=== PATIENT | female | born 1955 | race Caucasian/White ===

== ENCOUNTER 2018-03-17 00:26 | Outpatient (CLI) | payer OTHER, SELFPAY ==
--- NOTE | 2018-03-17 13:15 | DI.RAD_ITS ---
SYMPTOMS/DIAGNOSIS: ASYMPTOMATIC MENOPAUSAL STATE, Z78.0 DEXA SCAN WITH ROSE: The ROSE image shows no evidence of compression fractures. The bone mineral density measurements of the lumbar spine correspond to a total T score of -2.0, in the osteopenic range. The bone mineral density measurements of the left hip correspond to a total T score of -0.8 and a femoral neck T score of -1.2, in the osteopenic range. The left forearm bone mineral density measurements correspond to a total T score of -0.5 and a T score of the distal third of -0.6 , in the normal range. IMPRESSION: Osteopenia of the lumbar spine and left hip. Normal bone mineral density of the left forearm.
== END 2018-03-17 00:46 ==
PROVIDERS: PCP Nurse Practitioner; Visit Provider Nurse Practitioner
DX: M85.88 Other specified disorders of bone density and structure, other site (principal); Z78.0 Asymptomatic menopausal state
CPT/HCPCS: 77080

== ENCOUNTER 2018-09-08 09:35 | Outpatient (CLI) | payer OTHER, SELFPAY ==
[2018-09-08 11:03] LABS: ALT 20 U/L (12-78); AST 16 U/L (15-37); Albumin 3.6 g/dL (3.4-5.0); Alkaline Phosphatase 96 U/L (46-116); Anion Gap 7.5 mmol/L (3-11); BUN 12 mg/dL (7-18); Bilirubin, Total 0.4 mg/dL (0.2-1.0); CO2 29.5 mmol/L (21.0-32.0); CREATININE 0.87 mg/dL (0.55-1.02); Chloride 105 mmol/L (98-107); Cholesterol 175 mg/dL (50-200); Glucose 90 mg/dL (70-100); HDL Cholesterol 69 mg/dL (40-60); LDL CHOLESTEROL 90 mg/dL (<100); Potassium 3.9 mmol/L (3.5-5.1); Sodium 142 mmol/L (136-145); Total Protein 6.9 g/dL (6.4-8.2); Triglyceride 60 mg/dL (30-150)
== END 2018-09-08 09:55 ==
PROVIDERS: PCP Nurse Practitioner; Visit Provider Nurse Practitioner Family
DX: F33.3 Major depressive disorder, recurrent, severe with psychotic symptoms (principal); Z79.899 Other long term (current) drug therapy
CPT/HCPCS: 36415; 80053; 80061; 83721

== ENCOUNTER 2018-09-28 13:42 | Outpatient (CLI) | payer OTHER, SELFPAY ==
--- NOTE | 2018-09-28 13:30 | DI.RAD_ITS ---
SYMPTOMS/DIAGNOSIS: WATERY DIARRHEA, CHRONIC, K52.9; GASTROENTERITIS, COLITIS FLAT AND UPRIGHT VIEWS OF THE ABDOMEN: The visualized portions of the lung bases are clear. No free air is seen. There is no gastric, small bowel or colonic distention. There is a moderate increased quantity of stool. There is no abnormal colonic distention. There is a calcification projecting in the left pelvis, which could represent a ureteropelvic junction calculus versus a phlebolith. It measures 4 mm in diameter. IMPRESSION: Question of a calculus at the left ureterovesical junction versus phlebolith.
[2018-09-28 14:00] LABS: HCT 43.7 % (36.0-46.0); HGB 14.6 g/dL (12.0-15.5); Mean Corp. HGB Concentration 33.4 g/dL (32.0-36.0); Mean Corpuscular Volume 89.7 fL (80-95); Mean Platelet Volume 9.2 fL (8.0-11.0); Platelet Count 245 x1000/uL (130-400); RBC 4.87 m/cumm (4.00-5.20); RBC Distribution Width 13.8 % (11.7-14.6); White Blood Cell Count 5.24 k/cumm (4.4-10.8)
[2018-09-28 15:01] LABS: C-Reactive Protein 1.03 mg/dL (0.0-0.3); TSH (W/Ref FT4) 1.66 uIU/mL (0.358-3.74)
[2018-09-28 15:13] LABS: ESR 6 MM/HR (0-30)
[2018-09-30 13:39] LABS: IgA 190 mg/dL (85-499); Interpretation SEE COMMENTS; Tissue Transglutaminase IgA <1.2 U/mL (<4.0)
== END 2018-09-28 14:02 ==
PROVIDERS: PCP Nurse Practitioner; Visit Provider Nurse Practitioner
DX: K52.9 Noninfective gastroenteritis and colitis, unspecified (principal); R19.7 Diarrhea, unspecified; I10 Essential (primary) hypertension
CPT/HCPCS: 36415; 82784; 83516; 85027; 85652; 74019; 84443; 86140

== ENCOUNTER 2018-11-02 18:29 | Emergency (ER) | payer OTHER, SELFPAY ==
[2018-11-02] MEDS: EPINEPHrine 1 MG/ML AMP pres-free (18:35)
[2018-11-02 18:36] VITALS: BP 129/74; PULSE 66; RESP 16
--- NOTE | 2018-11-02 18:36 | DI.CT_ITS ---
SYMPTOM/DIAGNOSIS: LT SIDED SWELLING OF NECK, ? ABSCESS NECK CT: Multiple contiguous axial images of the neck were obtained following the uneventful administration of intravenous contrast material. The visualized intracranial structures are grossly unremarkable as are the visualized orbits and retro-orbital soft tissues. The visualized paranasal sinuses are clear. The mastoid air cells are well pneumatized. The parotid glands are unremarkable. There is heterogeneity and enlargement of the submandibular glands bilaterally, left greater than right. There also appear to be infiltrative changes seen in the muscles at the base of the tongue extending from the hyoid to the mandible. There does appear to be some enlargement of the tonsils with narrowing of the airway at the level of the uvula. There are enlarged lymph nodes in the neck bilaterally, particularly in the submandibular region. These are likely reactive. Stranding in the soft tissues in the submandibular region are present, particularly on the left. No focal fluid collection is seen to suggest an abscess. The vascular structures appear unremarkable. The cervical spine appears intact with mild degenerative change. IMPRESSION: Inflammatory changes involving the neck, particularly the submandibular region. No CT evidence of an abscess. Cervical adenopathy, likely reactive. Mild enlargement of the tonsillar tissue without focal abscess. This does result in mild narrowing of the airway at the level of the uvula.
--- NOTE | 2018-11-02 18:38 | W.ED.GENAD ---
Discharge Plan Disposition Patient Disposition: HOME Condition: Stable Discharge Details Chief Complaint: FacialProb Clinical Impression: Dental infection, Neck swelling Primary Care Provider: Carolina Mohr ED Provider: Ervin Vargas Home Meds and New Rx's Prescriptions: New clindamycin HCl 150 mg capsule 450 mg PO TID 10 Days Qty: 90 RF: 0 prednisone 20 mg tablet 60 mg PO DAILY 4 Days Qty: 12 RF: 0 No Action Questran Light 4 gram powder 4 g PO DAILY Qty: 60 RF: 12 diphenoxylate-atropine [Lomotil] 2.5-0.025 mg tablet 1 tab PO Q6H PRN (Reason: diarrhea) Qty: 60 RF: 0 CALCIUM 600+MINERALS 1 TAB tablet 1 tab PO BID RF: 0 fexofenadine [Lynda] 180 MG tablet 180 mg PO DAILY PRNRF: 0 sertraline 100 MG tablet 200 mg PO DAILY RF: 0 epinephrine [EpiPen 2-Marcelo] 0.3 MG/0.3 ML auto-injector 0.3 mg IM ONCE Qty: 2 RF: 1 multivitamin [Multi-Day] 1 EACH tablet 1 ea PO DAILY RF: 0 cyanocobalamin (vitamin B-12) [Vitamin B-12] 1,000 MCG tablet 1,000 mcg PO DAILY RF: 0 risperidone [Risperdal] 2 MG tablet 2 mg PO DAILY RF: 0 vitamin B complex [B Complete] 1 EACH tablet 1 ea PO DAILY RF: 0 cholecalciferol (vitamin D3) 1,000 UNIT capsule 2,000 unit PO DAILY RF: 0 diphenhydramine HCl [Benadryl] 25 mg Capsule 25 mg PO PRN PRNRF: 0 Discharge Instructions Additional Instructions: Your cat scan showed you have an infection near your teeth. Follow up with your dentist within 1-2 weeks if you have difficulty swallowing liquids or difficulty breathing return to the emergency department Medical Decision Making 63 yo female come s in after she states she started to have swelling of her left face about 3 hour ago, denies respiratory or gi symptoms. She states she thinks she had hives earlier but has none now. she took a benadryl and feels a little better now. She is hd stable on exam with noticeable swelling over the left mandible. Tongue doesn't appear swollen, no rashes, clear lungs, soft abdomen. Unclear if this is actually allergic reaction, will tx as such and also eval for possible abscess with CT ct confirms pt has perimandibular/submandibular cellulitis, suspect dental infecition. Still no findings of anaphylaxis so doubt she had this. Will start her on abx and advised f/u [facility] dentist, return precautions given Differential Diagnosis abscess, parotitis, angioedema Imaging Data Radiologic Study: Attestation: I personally reviewed and interpreted this imaging study as follows: Imaging: CT Scan Radiologist's impression: IMPRESSION: Left perimandibular cellulitis and submandibular swelling without discrete evidence of abscess formation. Associated left submandibular and left cervical chain reactive adenopathy. HPI General Mode of arrival: ambulatory. Date/Time Provider Initiated Documentation: 11/02/18 18:36. Limitations to Documentation: no limitations. Information obtained by: patient. History of Present Illness 63 year old F presents to the emergency department with the chief complaint of left sided face swelling, described as moderate, and is localized to the face and left. Patient started experiencing this hour(s) (2) and it has been other (improving). No relieving factors improve symptom(s), No exacerbating factors reported . Patient did receive the following treatments prior to arrival, none Related Data Home Medications Medication Instructions Recorded Confirmed Calcium 600+Minerals 1 tab PO BID 04/16/12 11/02/18 fexofenadine [Lynda] 180 mg PO DAILY PRN tab-cap 03/17/13 11/02/18 sertraline 200 mg PO DAILY tab-cap 03/18/13 11/02/18 epinephrine [Epipen 2-Marcelo] 0.3 mg IM ONCE #2 pen 04/11/14 11/02/18 multivitamin [Multi-Day Vitamins] 1 ea PO DAILY 06/17/14 11/02/18 cyanocobalamin (vitamin B-12) 1,000 mcg PO DAILY 05/02/16 11/02/18 [Vitamin B-12] risperidone [Risperdal] 2 mg PO DAILY tab 09/12/16 11/02/18 vitamin B complex [B Complete] 1 ea PO DAILY tab 09/12/16 11/02/18 cholecalciferol (vitamin D3) 2,000 unit PO DAILY 01/28/18 11/02/18 cholestyramine-aspartame 4 gram 4 g PO DAILY #60 packet 09/23/18 11/02/18 oral powder diphenoxylate-atropine 2.5 1 tab PO Q6H PRN #60 tab 09/23/18 11/02/18 mg-0.025 mg tablet clindamycin HCl 450 mg PO TID 10 Days #90 cap 11/02/18 diphenhydramine HCl [Benadryl] 25 mg PO PRN PRN 11/02/18 11/02/18 prednisone 60 mg PO DAILY 4 Days #12 tab 11/02/18 Previous Rx's Medication Instructions Recorded cholestyramine-aspartame 4 gram 4 g PO DAILY #60 packet 09/23/18 oral powder diphenoxylate-atropine 2.5 1 tab PO Q6H PRN #60 tab 09/23/18 mg-0.025 mg tablet clindamycin HCl 450 mg PO TID 10 Days #90 cap 11/02/18 prednisone 60 mg PO DAILY 4 Days #12 tab 11/02/18 Allergies Allergy/AdvReac Type Severity Reaction Status Date / Time aspirin Allergy Intermediate Urticaria Unverified 11/02/18 18:47 Review of Systems Review of Systems All systems reviewed & are unremarkable except as noted in HPI and below Constitutional Denies chills, Denies fever(s) and Denies weakness ENT Denies change in voice Cardiovascular Denies chest pain and Denies dyspnea Respiratory Denies cough and Denies dyspnea Gastrointestinal Denies abdominal pain, Denies nausea and Denies vomiting Genitourinary Denies dysuria Musculoskeletal Denies joint swelling Neurologic Denies weakness PFSH Medical History Depression Surgical History Biopsy of breast (~2010) Fracture Repair, Right Wrist Family History Mother Essential hypertension Hyperthyroidism Mental disorder Father COPD (chronic obstructive pulmonary disease) Brother No problems noted. Brother No problems noted. Sister Essential hypertension Sister Arthritis Sister No problems noted. Sister No problems noted. Maternal Aunt Personal history of malignant neoplasm Social History Smoking/Tobacco Use Status: Never Alcohol Intake: never Drug use: Never Do you feel safe at home: Yes Do you feel safe in your relationship?: Yes Exam Const General: no acute distress Orientation: alert HENMT Head: normal to inspection Ears: external ears normal General nose exam: external nose normal Mouth: moist mucous membranes Eyes General: appearance normal, both eyes and all related structures Neck Neck: normal visual inspection Resp Effort & Inspection: normal respiratory effort and able to speak in complete sentences Cardio Rate: regular rate Skin General skin exam: no rashes or lesions noted Neuro General: alert and oriented x3 Extrem General: normal to inspection Psych Mental Status: mental status grossly normal
[2018-11-02] MEDS: methylPREDNISolone SUCC 125 MG VIAL IVP (18:43)
--- NOTE | 2018-11-02 18:43 | ED.GENADUL_ITS ---
Discharge Plan Disposition Patient Disposition: HOME Condition: Stable Discharge Details Chief Complaint: FacialProb Clinical Impression: Dental infection, Neck swelling Primary Care Provider: Carolina Mohr ED Provider: Ervin Vargas Home Meds and New Rx's Prescriptions: New clindamycin HCl 150 mg capsule 450 mg PO TID 10 Days Qty: 90 RF: 0 prednisone 20 mg tablet 60 mg PO DAILY 4 Days Qty: 12 RF: 0 No Action Questran Light 4 gram powder 4 g PO DAILY Qty: 60 RF: 12 diphenoxylate-atropine [Lomotil] 2.5-0.025 mg tablet 1 tab PO Q6H PRN (Reason: diarrhea) Qty: 60 RF: 0 CALCIUM 600+MINERALS 1 TAB tablet 1 tab PO BID RF: 0 fexofenadine [Lynda] 180 MG tablet 180 mg PO DAILY PRNRF: 0 sertraline 100 MG tablet 200 mg PO DAILY RF: 0 epinephrine [EpiPen 2-Marcelo] 0.3 MG/0.3 ML auto-injector 0.3 mg IM ONCE Qty: 2 RF: 1 multivitamin [Multi-Day] 1 EACH tablet 1 ea PO DAILY RF: 0 cyanocobalamin (vitamin B-12) [Vitamin B-12] 1,000 MCG tablet 1,000 mcg PO DAILY RF: 0 risperidone [Risperdal] 2 MG tablet 2 mg PO DAILY RF: 0 vitamin B complex [B Complete] 1 EACH tablet 1 ea PO DAILY RF: 0 cholecalciferol (vitamin D3) 1,000 UNIT capsule 2,000 unit PO DAILY RF: 0 diphenhydramine HCl [Benadryl] 25 mg Capsule 25 mg PO PRN PRNRF: 0 Discharge Instructions Additional Instructions: Your cat scan showed you have an infection near your teeth. Follow up with your dentist within 1-2 weeks if you have difficulty swallowing liquids or difficulty breathing return to the emergency department Medical Decision Making 63 yo female come s in after she states she started to have swelling of her left face about 3 hour ago, denies respiratory or gi symptoms. She states she thinks she had hives earlier but has none now. she took a benadryl and feels a little better now. She is hd stable on exam with noticeable swelling over the left mandible. Tongue doesn't appear swollen, no rashes, clear lungs, soft abdomen. Unclear if this is actually allergic reaction, will tx as such and also eval for possible abscess with CT ct confirms pt has perimandibular/submandibular cellulitis, suspect dental infecition. Still no findings of anaphylaxis so doubt she had this. Will start her on abx and advised f/u [facility] dentist, return precautions given Differential Diagnosis abscess, parotitis, angioedema Imaging Data Radiologic Study: Attestation: I personally reviewed and interpreted this imaging study as follows: Imaging: CT Scan Radiologist's impression: IMPRESSION: Left perimandibular cellulitis and submandibular swelling without discrete evidence of abscess formation. Associated left submandibular and left cervical chain reactive adenopathy. HPI General Mode of arrival: ambulatory . Date/Time Provider Initiated Documentation: 11/02/18 18:36 . Limitations to Documentation: no limitations . Information obtained by: patient . History of Present Illness 63 year old F presents to the emergency department with the chief complaint of left sided face swelling, described as moderate, and is localized to the face and left. Patient started experiencing this hour(s) (2) and it has been other (improving). No relieving factors improve symptom(s), No exacerbating fa ctors reported . Patient did receive the following treatments prior to arrival, none Related Data Home Medications Medication Instructions Recorded Confirmed Calcium 600+Minerals 1 tab PO BID 04/16/12 11/02/18 fexofenadine [Lynda] 180 mg PO DAILY PRN tab-cap 03/17/13 11/02/18 sertraline 200 mg PO DAILY tab-cap 03/18/13 11/02/18 epinephrine [Epipen 2-Marcelo] 0.3 mg IM ONCE #2 pen 04/11/14 11/02/18 multivitamin [Multi-Day Vitamins] 1 ea PO DAILY 06/17/14 11/02/18 cyanocobalamin (vitamin B-12) 1,000 mcg PO DAILY 05/02/16 11/02/18 [Vitamin B-12] risperidone [Risperdal] 2 mg PO DAILY tab 09/12/16 11/02/18 vitamin B complex [B Complete] 1 ea PO DAILY tab 09/12/16 11/02/18 cholecalciferol (vitamin D3) 2,000 unit PO DAILY 01/28/18 11/02/18 cholestyramine-aspartame 4 gram 4 g PO DAILY #60 packet 09/23/18 11/02/18 oral powder diphenoxylate-atropine 2.5 1 tab PO Q6H PRN #60 tab 09/23/18 11/02/18 mg-0.025 mg tablet clindamycin HCl 450 mg PO TID 10 Days #90 cap 11/02/18 diphenhydramine HCl [Benadryl] 25 mg PO PRN PRN 11/02/18 11/02/18 prednisone 60 mg PO DAILY 4 Days #12 tab 11/02/18 Previous Rx's Medication Instructions Recorded cholestyramine-aspartame 4 gram 4 g PO DAILY #60 packet 09/23/18 oral powder diphenoxylate-atropine 2.5 1 tab PO Q6H PRN #60 tab 09/23/18 mg-0.025 mg tablet clindamycin HCl 450 mg PO TID 10 Days #90 cap 11/02/18 prednisone 60 mg PO DAILY 4 Days #12 tab 11/02/18 Allergies Allergy/AdvReac Type Severity Reaction Status Date / Time aspirin Allergy Intermediate Urticaria Unverified 11/02/18 18:47 Review of Systems Review of Systems All systems reviewed & are unremarkable except as noted in HPI and below Constitutional Denies chills, Denies fever(s) and Denies weakness ENT Denies change in voice Cardiovascular Denies chest pain and Denies dyspnea Respiratory Denies cough and Denies dyspnea Gastrointestinal Denies abdominal pain, Denies nausea and Denies vomiting Genitourinary Denies dysuria Musculoskeletal Denies joint swelling Neurologic Denies weakness PFSH Medical History Depression Surgical History Biopsy of breast (~2010) Fracture Repair, Right Wrist Family History Mother Essential hypertension Hyperthyroidism Mental disorder Father COPD (chronic obstructive pulmonary disease) Brother No problems noted. Brother No problems noted. Sister Essential hypertension Sister Arthritis Sister No problems noted. Sister No problems noted. Maternal Aunt Personal history of malignant neoplasm Social History Smoking/Tobacco Use Status: Never Alcohol Intake: never Drug use: Never Do you feel safe at home: Yes Do you feel safe in your relationship?: Yes Exam Const General: no acute distress Orientation: alert HENMT Head: normal to inspection Ears: external ears normal General nose exam: external nose normal Mouth: moist mucous membranes Eyes General: appearance normal, both eyes and all related structures Neck Neck: normal visual inspection Resp Effort & Inspection: normal respiratory effort and able to speak in complete sentences Cardio Rate: regular rate Skin General skin exam: no rashes or lesions noted Neuro General: alert and oriented x3 Extrem General: normal to inspection Psych Mental Status: mental status grossly normal
[2018-11-02 18:49] LABS: Abs Immature Grans 0.02 k/cumm (0.0-0.09); Absolute Basophil Count 0.01 k/cumm (0.0-0.2); Absolute Eosinophil Count 0.14 k/cumm (0.0-0.7); Absolute Lymphocyte Count 1.87 k/cumm (1.2-3.4); Absolute Monocyte Count 0.48 k/cumm (0.11-0.7); Absolute Neutrophil Count 6.42 k/cumm (1.2-6.7); Basophils % 0.1; Eosinophils % 1.6; HCT 43.1 % (36.0-46.0); HGB 14.5 g/dL (12.0-15.5); Immature Grans % 0.2; Lymphocytes % 20.9; Mean Corp. HGB Concentration 33.6 g/dL (32.0-36.0); Mean Corpuscular Hemoglobin 30.3 pg (27.0-33.0); Mean Platelet Volume 9.3 fL (8.0-11.0); Monocytes % 5.4; Neutrophils % 71.8; Platelet Count 244 x1000/uL (130-400); RBC 4.79 m/cumm (4.00-5.20); RBC Distribution Width 14.2 % (11.7-14.6); White Blood Cell Count 8.94 k/cumm (4.4-10.8)
[2018-11-02 19:02] LABS: ALT 19 U/L (12-78); AST 15 U/L (15-37); Albumin 3.3 g/dL (3.4-5.0); Alkaline Phosphatase 94 U/L (46-116); BUN 11 mg/dL (7-18); Bilirubin, Total 0.2 mg/dL (0.2-1.0); Calcium 8.4 mg/dL (8.5-10.1); Chloride 101 mmol/L (98-107); Glucose 110 mg/dL (70-100); Potassium 3.2 mmol/L (3.5-5.1); Sodium 136 mmol/L (136-145); Total Protein 6.8 g/dL (6.4-8.2)
[2018-11-02] MEDS: Omnipaque 350 MG/ML 100 ML BTL IJ (19:02)
[2018-11-02 19:19] VITALS: BP 126/65; PULSE 76; RESP 18; TEMP 37; O2SAT 95
--- NOTE | 2018-11-02 19:49 | DI.VRAD_ITS ---
EXAM: CT Neck With Contrast EXAM DATE/TIME: 11/02/2018 6:38 PM CLINICAL HISTORY: 63 years old, female; Signs and symptoms; Mass, lump, or swelling in neck; Patient HX: Left-sided swelling; Per PT: Feels like tongue swollen; Additional info: ? Abscess TECHNIQUE: Imaging protocol: Axial computed tomography images of the neck with intravenous contrast. Coronal and sagittal reformatted images were created and reviewed. COMPARISON: No relevant prior studies available. FINDINGS: Limitations: Evaluation of the left mandibular and submandibular region is limited due to streak artifact from dental hardware. Brain: Visualized intracranial compartment is unremarkable. Orbits: Visualized orbits are unremarkable. Sinuses: Airway is patent. Nasopharynx: Normal. Oropharynx: Difficult to evaluate the tongue, due to streak artifacts. However, no discrete lingual fluid collections are noted. There is mild left submandibular swelling noted as well. No discrete perimandibular or submandibular fluid collections are noted. Hypopharynx: Normal. Larynx: Normal. Normal epiglottis. Retropharyngeal space: Normal. Submandibular/Parotid glands: Normal. Glands are normal in size. Thyroid: Normal. No enlarged or calcified nodules. Lymph nodes: There is left submandibular adenopathy, as well as left cervical chain adenopathy noted as well. Trachea: Visualized trachea is unremarkable. Lungs: Normal as visualized. Vasculature: No acute findings. Bones/joints: No acute skeletal abnormality or aggressive osseous lesion is noted. Soft tissues: There is soft tissue swelling along the left perimandibular subcutaneous tissues. IMPRESSION: Left perimandibular cellulitis and submandibular swelling without discrete evidence of abscess formation. Associated left submandibular and left cervical chain reactive adenopathy. Dictated and Authenticated by: Ubaldo Muir MD. Ordering:SHA Mueller MD
[2018-11-02] MEDS: Clindamycin 150 MG CAP 450 MG PO (19:56)
[2018-11-02 19:57] VITALS: BP 113/64; PULSE 70; RESP 18; TEMP 37; O2SAT 94
[2018-11-02 20:07] VITALS: BP 113/64; PULSE 70; RESP 18; TEMP 37; O2SAT 94
== END 2018-11-02 20:10 | disposition home or self-care (01) ==
PROVIDERS: Emergency Provider Emergency Medicine; PCP Nurse Practitioner
DX: R22.1 Localized swelling, mass and lump, neck (principal); K12.2 Cellulitis and abscess of mouth; K04.7 Periapical abscess without sinus
CPT/HCPCS: 36415; 70491; 80053; 96374; 96375; 99285; 85025; J0171; J2930; J3490

== ENCOUNTER 2020-12-11 04:49 | Outpatient (CLI) | payer OTHER, SELFPAY ==
[2020-12-11 11:16] LABS: HCT 42.2 % (36.0-46.0); HGB 13.9 g/dL (11.2-15.7); MCH 29.7 pg (27.0-33.0); MCHC 32.9 % (32.0-36.0); MCV 90.2 fL (80-95); MPV 8.8 fL (8.0-11.0); Platelet Count 238 10^3/uL (130-400); RBC 4.68 10^6/uL (3.93-5.22); RDW 13.4 % (11.7-14.6); RDW-SD 45.2 fL; WBC 5.44 10^3/uL (4.4-10.8)
[2020-12-11 11:26] LABS: Hemoglobin A1C 5.3 % (<5.7)
[2020-12-11 12:01] LABS: ALT 24 U/L (14-59); AST 19 U/L (15-37); Albumin 3.8 g/dL (3.4-5.0); Alkaline Phosphatase 92 U/L (46-116); Anion Gap 9.6 mmol/L (3-11); BUN 9 mg/dL (7-18); Bilirubin, Total 0.5 mg/dL (0.2-1.0); CO2 28.4 mmol/L (21.0-32.0); Calculated LDL 139 mg/dL (<100); Chloride 106 mmol/L (98-107); Cholesterol 230 mg/dL (<200); Glucose 88 mg/dL (74-106); HDL Cholesterol 76 mg/dL (40-60); Potassium 4.2 mmol/L (3.5-5.1); Sodium 144 mmol/L (136-145); Total Protein 7.2 g/dL (6.4-8.2); Triglyceride 76 mg/dL (<150)
== END 2020-12-11 04:50 | disposition home or self-care (01) ==
LOC: LBO 04:49
PROVIDERS: PCP Nurse Practitioner; Visit Provider Nurse Practitioner
DX: R73.01 Impaired fasting glucose (principal); E78.5 Hyperlipidemia, unspecified
CPT/HCPCS: 36415; 80053; 80061; 85027; 83036

== ENCOUNTER 2020-12-26 01:22 | Outpatient (CLI) | payer OTHER, SELFPAY ==
--- NOTE | 2020-12-26 06:30 | DI.MAMMO_ITS ---
Exam(s) MAMMO SCREENING EXAM: MAMMO SCREENING CLINICAL HISTORY: screening,Z12.39 TECHNIQUE: Mammograms were interpreted according to the usual protocol including computer analysis w [facility] CAD system, tomosynthesis and C-view imaging. COMPARISON: FINDINGS: The breasts are heterogeneously dense. No dominant mass or clumped microcalcification is identified in either breast. Previously noted post biopsy scarring again seen in the right breast. No signific ant change in appearance comparison with prior examinations including December 2017. IMPRESSION: No specific evidence of malignancy at this time. Routine screening examinations are suggested at yea rly intervals due to the family history of breast carcinoma. BI-RADS Category 1 - Negative Breast Density - Category C - Heterogeneously dense
== END 2020-12-26 01:42 ==
PROVIDERS: PCP Nurse Practitioner; Visit Provider Nurse Practitioner
DX: Z12.31 Encounter for screening mammogram for malignant neoplasm of breast (principal); Z80.3 Family history of malignant neoplasm of breast
CPT/HCPCS: 77063; 77067

== ENCOUNTER 2021-11-14 01:59 | Outpatient (CLI) | payer MEDICARE, SELFPAY ==
[2021-11-14 07:45] LABS: Hemoglobin A1C 5.3 % (<5.7)
[2021-11-14 08:31] LABS: ALT 31 U/L (14-59); AST 23 U/L (15-37); Albumin 3.7 g/dL (3.4-5.0); Alkaline Phosphatase 108 U/L (46-116); Anion Gap 9.3 mmol/L (3-11); BUN 12 mg/dL (7-18); Bilirubin, Total 0.4 mg/dL (0.2-1.0); CO2 28.7 mmol/L (21.0-32.0); CREATININE 0.9 mg/dL (0.55-1.02); Calcium 8.8 mg/dL (8.5-10.1); Calculated LDL 129 mg/dL (<100); Chloride 106 mmol/L (98-107); Cholesterol 225 mg/dL (<200); Glucose 94 mg/dL (74-106); HDL Cholesterol 81 mg/dL (40-60); Potassium 3.7 mmol/L (3.5-5.1); Sodium 144 mmol/L (136-145); TSH (W/Ref FT4) 1.16 uIU/mL (0.36-3.74); Total Protein 6.9 g/dL (6.4-8.2); Triglyceride 78 mg/dL (<150)
== END 2021-11-14 02:00 | disposition home or self-care (01) ==
LOC: LBO 01:59
PROVIDERS: PCP Nurse Practitioner; Visit Provider Nurse Practitioner
DX: E78.5 Hyperlipidemia, unspecified (principal); R73.01 Impaired fasting glucose; R63.1 Polydipsia; F32.9 Major depressive disorder, single episode, unspecified; Z11.59 Encounter for screening for other viral diseases; Z83.49 Family history of other endocrine, nutritional and metabolic diseases
CPT/HCPCS: 36415; 80053; 80061; 83036; 84443

== ENCOUNTER → 2022-02-13 01:23 | Outpatient (CLI) | payer MEDICARE, SELFPAY ==
--- NOTE | 2022-02-13 07:45 | DI.MAMMO_ITS ---
Exam(s) MAMMO SCREENING EXAM: MAMMO SCREENING CLINICAL HISTORY: screening,Z12.39 TECHNIQUE: Mammograms were interpreted according to the usual protocol including computer analysis w [employer] CAD system, tomosynthesis and C-view imaging. COMPARISON: FINDINGS: The breasts are heterogeneously dense. No dominant mass or clumped microcalcification is identified in either breast. Current examination is compared with previous examinations including December 2020, no gross interval change in appearance of presumed post biopsy scarring in the upper outer quadrant of the right breast associated with biopsy marker clips. No other significant change. IMPRESSION: No specific evidence of malignancy at this time. Routine screening examinations are suggested at ye richard intervals in this age group according to the ACS ACR guidelines. BI-RADS Category 1 - Negative Breast Density - Category C - Heterogeneously dense
== END ==
PROVIDERS: PCP Nurse Practitioner; Visit Provider Nurse Practitioner
DX: Z12.31 Encounter for screening mammogram for malignant neoplasm of breast (principal); R92.8 Other abnormal and inconclusive findings on diagnostic imaging of breast
CPT/HCPCS: 77063; 77067

== ENCOUNTER → 2022-06-13 00:45 | Outpatient (CLI) | payer MEDICARE, SELFPAY ==
--- NOTE | 2022-06-13 07:15 | DI.DEXA_ITS ---
Exam(s) XR DEXA BONE DENSITY W/WO ROSE EXAM: XR DEXA BONE DENSITY W/WO ROSE CLINICAL HISTORY: screening for osteoporosis in postmenopausal woman,z78.0 TECHNIQUE: COMPARISON: Comparison examination is 03/17/2018. FINDINGS: Lateral Spine Image: Unremarkable. No compression deformities identified. Left hip: Total T-Score: -1.1 Total Z-Score: 0.2 T- and Z-scores: Findings are consistent with osteopenia. Lumbar Spine: Total T-Score: -2.4 Total Z-Score: -0.6 T- and Z-scores: Findings are consistent with osteopenia. IMPRESSION: Osteopenia in the lumbar spine and left hip.
== END ==
PROVIDERS: PCP Nurse Practitioner; Visit Provider Nurse Practitioner
DX: Z78.0 Asymptomatic menopausal state (principal); Z13.820 Encounter for screening for osteoporosis; M85.89 Other specified disorders of bone density and structure, multiple sites
CPT/HCPCS: 77080

== ENCOUNTER 2022-12-27 02:27 | Outpatient (CLI) | payer MEDICARE, SELFPAY ==
[2022-12-27 07:45] LABS: HCT 42.6 % (36.0-46.0); HGB 14.2 g/dL (11.2-15.7); MCH 29.8 pg (27.0-33.0); MCHC 33.3 % (32.0-36.0); MCV 90 fL (80-95); MPV 8.5 fL (8.0-11.0); Platelet Count 225 10^3/uL (130-400); RBC 4.76 10^6/uL (3.93-5.22); RDW 13.3 % (11.7-14.6); WBC 4.53 10^3/uL (4.4-10.8)
[2022-12-27 08:54] LABS: ALT 23 U/L (14-59); AST 19 U/L (15-37); Albumin 3.6 g/dL (3.4-5.0); Alkaline Phosphatase 90 U/L (46-116); BUN 9 mg/dL (7-18); Bilirubin, Total 0.5 mg/dL (0.2-1.0); CREATININE 0.9 mg/dL (0.55-1.02); Calcium 9.2 mg/dL (8.5-10.1); Calculated LDL 149 mg/dL (<100); Chloride 103 mmol/L (98-107); Cholesterol 242 mg/dL (<200); Estimated GFR 70.95 (mL/min/1.73m2); Glucose 91 mg/dL (74-106); HDL Cholesterol 79 mg/dL (40-60); Potassium 3.8 mmol/L (3.5-5.1); Sodium 138 mmol/L (136-145); Total Protein 7.2 g/dL (6.4-8.2); Triglyceride 70 mg/dL (<150)
== END 2022-12-27 02:28 | disposition home or self-care (01) ==
LOC: LBO 02:27
PROVIDERS: PCP Nurse Practitioner; Visit Provider Nurse Practitioner
DX: E78.5 Hyperlipidemia, unspecified (principal); F32.9 Major depressive disorder, single episode, unspecified
CPT/HCPCS: 36415; 80053; 80061; 85027

== ENCOUNTER → 2023-02-17 02:16 | Outpatient (CLI) | payer MEDICARE, SELFPAY ==
--- NOTE | 2023-02-17 08:45 | DI.MAMMO_ITS ---
Exam(s) MAMMO SCREENING EXAM: MAMMO SCREENING CLINICAL HISTORY: screening,Z12.39. TECHNIQUE: Bilateral full field digital CC and MLO mammographic images were obtained with 3D tomosyn thesis and utilizing computer aided detection (CAD). COMPARISON: Prior mammograms were reviewed. FINDINGS: Architectural distortion in the right breast at site of prior biopsy appears unchanged from prior [facility] mograms. However, laterally in the right breast there is a asymmetric density measuring 1.4 by 0.8 cm located approximately 15 cm in from the nipple on the CC view. Adjacent to it is another asymmetric density, more evident than on prior mammograms. Spot compression CC view and ultrasound recommended. There are scattered benign-appearing microcalcifications in the right breast noted. In the left breast there is a microcalcification group in the upper outer quadrant located 18 cm in f rom the nipple on the CC view which will require spot magnification 2D views. Also in the left breast there are few noncalcified lobulated nodular densities best seen on the CC vi ew which require spot compression views and ultrasound. There is no significant architectural distortion nor skin thickening-retraction in either breast. IMPRESSION: 1. Bilateral nodular densities which require spot compression views and bilateral breast ultrasound. 2. Left breast microcalcification group in the upper outer quadrant requires 2D Mag views. BI-RADS Category 0 - Assessment Incomplete: Need additional imaging evaluation Breast Density - Category C - Heterogeneously dense Breast density Category C or D implies that the patient has dense breast tissue. Dense breast tissue can make it harder to find cancer on a mammogram. Dense breast tissue is also associated with an incr eased risk of breast cancer. This information about the result of the mammogram report was provided to the patient to raise their awareness. Use this report when you speak with the patient about their risks for breast cancer, which includes their family history. At that time, you may recommend additional screening tests (Ultrasoun d or MRI) as these tests may add significant information. A negative radiographic report should not delay biopsy if a dominant or clinically suspicious mass is present. Up to ten percent of cancers are not identified on mammography. A negative report may reinforce clinical impression. Adenosis and dense breasts may obscure an underlying neoplasm. False positive reports average 6 to 10%. Patient will receive a letter notifying them of these results.
== END ==
PROVIDERS: PCP Nurse Practitioner; Visit Provider Nurse Practitioner
DX: Z12.31 Encounter for screening mammogram for malignant neoplasm of breast (principal)
CPT/HCPCS: 77063; 77067

== ENCOUNTER → 2023-02-20 02:20 | Outpatient (CLI) | payer MEDICARE, SELFPAY ==
--- NOTE | 2023-02-20 | DI.US_ITS ---
Exam(s) US BREAST LT COMPLETE US BREAST RT COMPLETE MG MAMMO SCREEN CALL BACK BI EXAM: MG MAMMO SCREEN CALL BACK BI AND BILATERAL COMPLETE BREAST ULTRASOUND CLINICAL HISTORY: F/U MAMMO, BILAT NODULAR DENSITIES,LT MICROCALCIFICATION GROUP. TECHNIQUE: BILATERAL spot mammographic images obtained with 3D tomosynthesisand utilizing computer a ided detection (CAD). . LEFT BREAST spot Mag view of microcalcification group Complete BILATERAL breast Ultrasound was also performed, including all 4 quadrants, the retroareolar region, and the bilateral axillary regions. COMPARISON: Prior mammograms were reviewed. This additional imaging was performed due to findings described on the recent screening mammogram of 02/13/2022. FINDINGS: DIAGNOSTIC BLADDER MAMMOGRAM: Additional mammographic views performed todayrender the nodular densities somewhat less evident. The 2D spot Mag view of the left breast microcalcifications performed today reveals these calcificati ons to be presently benign in appearance but requiring six-month follow-up. COMPLETE BILATERAL BREAST ULTRASOUND: LEFT BREAST: At the 1 o'clock there is a 7 x 3 mm benign appearing intramammary lymph node. At the 2 o'clock position there is a wider than taller 4 x 3 x7 millimeter nodule with neutral throug h transmission. Possible fibroadenoma or hemorrhagic cyst. At the 3 o'clock position there is a benign 3 mm microcyst. In the retroareolar region there is a 6 x 3 millimeter cyst at the central 3-4 o'clock position. Scanning of the left axilla reveals no significant adenopathy but there is a 7 x 6 mm benign cyst not ed. RIGHT BREAST: At the 7 o'clock position there is a 5 x 4 mm microcyst. At the 9 o'clock position there is a benign microcyst measuring 3 x 2 mm. Scanning of the right axilla is negative for significant adenopathy. IMPRESSION: 1. Multiple bilateral ultrasound findings which have benign appearance but should undergo repeat ult rasound in 6 months to ensure stability. 2. Presently benign-appearing microcalcification group in the left breast which should undergo repea t mammogram and spot Mag view in 6 months. The patient was informed of these findings and recommendations by myself prior to leaving the departm ent today. BI-RADS Category 3 - 6 month - Probably Benign Finding: Recommend follow-up mammography in 6 months Breast Density - Category C - Heterogeneously dense Breast density Category C or D implies that the patient has dense breast tissue. Dense breast tissue can make it harder to find cancer on a mammogram. Dense breast tissue is also associated with an incr eased risk of breast cancer. This information about the result of the mammogram report was provided to the patient to raise their awareness. Use this report when you speak with the patient about their risks for breast cancer, which includes their family history. At that time, you may recommend additional screening tests (Ultrasoun d or MRI) as these tests may add significant information. A negative radiographic report should not delay biopsy if a dominant or clinically suspicious mass is present. Up to ten percent of cancers are not identified on mammography. A negative report may reinforce clinical impression. Adenosis and dense breasts may obscure an underlying neoplasm. False positive reports average 6 to 10%. Patient will receive a letter notifying them of these results.
== END ==
PROVIDERS: PCP Nurse Practitioner; Visit Provider Nurse Practitioner
DX: R92.8 Other abnormal and inconclusive findings on diagnostic imaging of breast (principal); Z12.31 Encounter for screening mammogram for malignant neoplasm of breast
CPT/HCPCS: 76642; 77063; 77067

== ENCOUNTER → 2023-09-03 00:22 | Outpatient (CLI) | payer MEDICARE, SELFPAY ==
--- NOTE | 2023-09-03 10:27 | DI.MAMMO_ITS ---
Exam(s) MG MAMMO DIAGNOSTIC UNI EXAM: MG MAMMO DIAGNOSTIC UNI CLINICAL HISTORY: 6 mo f/u,f/u abnl mammo, r92.8,lt breast microcalcifications. TECHNIQUE: Craniocaudal and mediolateral oblique Full Field Digital Mammography views of the left br east with Computer Aided Diagnosis followed by Tomosynthesis. COMPARISON: Comparison is made with prior examinations. FINDINGS: Mammography/Tomosynthesis: Masses/Architectural Distortion: None seen. Microcalcifictions: No suspicious pleomorphic-type are seen. No change in appearance of the microcalc ifications in the left breast. They have a benign appearance. Skin Thickening/Nipple Retraction: None. IMPRESSION: 1. No evidence of malignancy is noted. 2. Unless there is more urgent need, follow-up screening mammography is recommended, as per [employer] guidelines. 3. The patient was unable to have the bilateral breast ultrasound at this time. The patient is sched uled to return to complete the examination. 4. The findings were discussed with the patient on the date of the examination. BI-RADS Category 1 - Negative Breast Density - Category C - Heterogeneously dense Breast density Category C or D implies that the patient has dense breast tissue. Dense breast tissue can make it harder to find cancer on a mammogram. Dense breast tissue is also associated with an incr eased risk of breast cancer. This information about the result of the mammogram report was provided to the patient to raise their awareness. Use this report when you speak with the patient about their risks for breast cancer, which includes their family history. At that time, you may recommend additional screening tests (Ultrasoun d or MRI) as these tests may add significant information. A negative radiographic report should not delay biopsy if a dominant or clinically suspicious mass is present. Up to ten percent of cancers are not identified on mammography. A negative report may reinforce clinical impression. Adenosis and dense breasts may obscure an underlying neoplasm. False positive reports average 6 to 10%. Patient will receive a letter notifying them of these results.
== END ==
PROVIDERS: PCP Nurse Practitioner; Visit Provider Nurse Practitioner
DX: Z12.31 Encounter for screening mammogram for malignant neoplasm of breast (principal); R92.8 Other abnormal and inconclusive findings on diagnostic imaging of breast
CPT/HCPCS: 77061; 77065; G0279

== ENCOUNTER → 2023-09-09 00:55 | Outpatient (CLI) | payer MEDICARE, SELFPAY ==
--- NOTE | 2023-09-09 07:30 | DI.US_ITS ---
Exam(s) US BREAST LT COMPLETE US BREAST RT COMPLETE EXAM: US BREAST bilateral COMPLETE CLINICAL HISTORY: abnormal mammo,lt finding,r92.8. TECHNIQUE: Complete bilateral breast ultrasound. All 4 quadrants of the breasts were evaluated sono graphically in addition to the retroareolar and axillary regions bilaterally. COMPARISON: Comparison is made with prior examinations of mammograms and ultrasounds. FINDINGS: Complete bilateral breast US: Echotexture: Normal appearance of the glandular tissue. Shadowing: No suspicious foci. Cyst: None. Solid lesions: None seen. Ductal dilation: None. IMPRESSION: 1. No evidence of malignancy is noted. 2. Unless there is more urgent need, follow-up screening mammography is recommended, as per [place] guidelines. 3. The findings were discussed with the patient on the date of the examination. BI-RADS Category 1 - Negative
== END ==
PROVIDERS: PCP Nurse Practitioner; Visit Provider Nurse Practitioner
DX: R92.8 Other abnormal and inconclusive findings on diagnostic imaging of breast (principal)
CPT/HCPCS: 76642

== ENCOUNTER → 2023-12-15 02:24 | Outpatient (CLI) | payer MEDICARE, SELFPAY ==
--- NOTE | 2023-12-15 07:15 | DI.RAD_ITS ---
Exam(s) XR KNEE RT 3V AP,LAT,DENIS EXAM: XR KNEE RT 3V AP,LAT,DENIS CLINICAL HISTORY: rt knee pain 5 mos,m25.561. TECHNIQUE: 2D digital imaging was performed. COMPARISON: No exams were available for comparison FINDINGS: 3 views No evidence of fracture but there is a joint effusion signifying internal derangement. And there is moderate narrowing of the medial compartment. No narrowing of the lateral compartment and no obvious abnormality in the patellofemoral compartment. Small osteo chondroma seen at the level of the infer ior left fibular neck. No osteochondral defects. IMPRESSION: Moderate degenerative changes in the medial compartment. Joint effusion noted. DATA REPOSITORY: RADIATION DOSE DELIVERED:
== END ==
PROVIDERS: PCP Nurse Practitioner; Visit Provider Nurse Practitioner
DX: M17.11 Unilateral primary osteoarthritis, right knee (principal)
CPT/HCPCS: 73562

== ENCOUNTER 2023-12-15 16:17 | Outpatient (CLI) | payer MEDICARE, SELFPAY ==
[2023-12-15 10:10] LABS: Abs Immature Grans 0.01 10^3/uL (0.0-0.06); Absolute Basophil Count 0.03 10^3/uL (0.0-0.2); Absolute Eosinophil Count 0.15 10^3/uL (0.0-0.7); Absolute Lymphocyte Count 1.58 10^3/uL (1.2-3.4); Absolute Monocyte Count 0.39 10^3/uL (0.1-0.8); Absolute Neutrophil Count 3.26 10^3/uL (1.2-6.7); Basophils % 0.6 %; Eosinophils % 2.8 %; HCT 42.1 % (36.0-46.0); Immature Grans % 0.2 %; Lymphocytes % 29.2 %; MCH 30.2 pg (27.0-33.0); MCHC 33.3 % (32.0-36.0); MCV 91 fL (80-95); MPV 9.1 fL (8.0-11.0); Monocytes % 7.2 %; Platelet Count 235 10^3/uL (130-400); RBC 4.63 10^6/uL (3.93-5.22); RDW 13.3 % (11.7-14.6); RDW-SD 44.9 fL; WBC 5.42 10^3/uL (4.4-10.8)
[2023-12-15 10:52] LABS: ALT 20 U/L (14-59); AST 17 U/L (15-37); Albumin 3.8 g/dL (3.4-5.0); Alkaline Phosphatase 79 U/L (46-116); Anion Gap 8.4 mmol/L (3-11); BUN 11 mg/dL (7-18); Bilirubin, Total 0.4 mg/dL (0.2-1.0); CO2 31.6 mmol/L (21.0-32.0); CREATININE 0.9 mg/dL (0.55-1.02); Calcium 9.4 mg/dL (8.5-10.1); Calculated LDL 140 mg/dL (<100); Chloride 101 mmol/L (98-107); Cholesterol 241 mg/dL (<200); Estimated GFR 70.51 (mL/min/1.73m2); Glucose 84 mg/dL (74-106); HDL Cholesterol 82 mg/dL (40-60); Potassium 3.8 mmol/L (3.5-5.1); Sodium 141 mmol/L (136-145); Total Protein 7.3 g/dL (6.4-8.2); Triglyceride 96 mg/dL (<150); Vitamin D 25 Total 67.8 ng/mL (30-100)
== END 2023-12-15 16:18 | disposition home or self-care (01) ==
LOC: LBO 16:18
PROVIDERS: PCP Nurse Practitioner; Visit Provider Nurse Practitioner
DX: E78.5 Hyperlipidemia, unspecified; F29 Unspecified psychosis not due to a substance or known physiological condition; M85.89 Other specified disorders of bone density and structure, multiple sites; E55.9 Vitamin D deficiency, unspecified
CPT/HCPCS: 36415; 80053; 80061; 82306; 85025

== ENCOUNTER 2024-09-07 02:20 | Outpatient (CLI) | payer MEDICARE, SELFPAY ==
--- NOTE | 2024-09-07 08:47 | DI.MAMMO_ITS ---
Exam(s) MAMMO SCREENING EXAM: MAMMO SCREENING CLINICAL HISTORY: screening,z12.39. TECHNIQUE: Bilateral full field digital CC and MLO mammographic images were obtained with 3D tomosyn thesis and utilizing computer aided detection (CAD). COMPARISON: Prior mammograms were reviewed. Prior bilateral breast ultrasound September 2023 reviewed. FINDINGS: No new significant left breast findings. In the right breast there are again noted 3 biopsy marker devices in the upper quadrant. Architectur al distortion in this region appears unchanged from prior studies There are no new spiculated masses nor new malignant appearing microcalcification groups. There is no new significant skin thickening-retraction . IMPRESSION: Stable findings at right breast prior biopsy site in the upper outer quadrant. No obvious radiograph ic evidence malignancy. BI-RADS Category 2 - Benign Findings Breast Density - Category B - Scattered areas of fibroglandular density Breast density Category C or D implies that the patient has dense breast tissue. Dense breast tissue can make it harder to find cancer on a mammogram. Dense breast tissue is also associated with an incr eased risk of breast cancer. This information about the result of the mammogram report was provided to the patient to raise their awareness. Use this report when you speak with the patient about their risks for breast cancer, which includes their family history. At that time, you may recommend additional screening tests (Ultrasoun d or MRI) as these tests may add significant information. A negative radiographic report should not delay biopsy if a dominant or clinically suspicious mass is present. Up to ten percent of cancers are not identified on mammography. A negative report may reinforce clinical impression. Adenosis and dense breasts may obscure an underlying neoplasm. False positive reports average 6 to 10%. Patient will receive a letter notifying them of these results.
== END 2024-09-07 02:40 ==
PROVIDERS: PCP Nurse Practitioner; Visit Provider Nurse Practitioner
DX: Z12.31 Encounter for screening mammogram for malignant neoplasm of breast (principal); R92.323 Mammographic fibroglandular density, bilateral breasts; D24.1 Benign neoplasm of right breast
CPT/HCPCS: 77063; 77067

== ENCOUNTER 2024-12-20 00:12 | Outpatient (CLI) | payer MEDICARE, SELFPAY ==
--- NOTE | 2024-12-20 11:19 | DI.DEXA_ITS ---
Exam(s) XR DEXA BONE DENSITY W/WO ROSE EXAM: XR DEXA BONE DENSITY W/WO ROSE CLINICAL HISTORY: osteopenia,screening for osteoporosis in postmenopausal state,z78.0 TECHNIQUE: COMPARISON: CR XR DEXA BONE DENSITY W/WO ROSE from 06/13/2022 FINDINGS: Lateral Spine Image: Unremarkable. No compression deformities identified. Left hip: Total T-Score: -1.2. This compares to -1.1 on the prior examination. Total Z-Score: 0.2 T- and Z-scores: Findings are consistent with osteopenia. Lumbar Spine: Total T-Score: -2.3. This compares to -2.4 on the prior examination. Total Z-Score: -0.4 T- and Z-scores: Findings are consistent with osteopenia. IMPRESSION: Osteopenia in the lumbar spine and left hip.
== END 2024-12-20 00:32 ==
LOC: DI 00:12
PROVIDERS: PCP Nurse Practitioner Family; Visit Provider Nurse Practitioner Family
DX: Z13.820 Encounter for screening for osteoporosis (principal); Z78.0 Asymptomatic menopausal state; R73.01 Impaired fasting glucose; M85.89 Other specified disorders of bone density and structure, multiple sites
CPT/HCPCS: 77080

== ENCOUNTER 2025-06-15 00:38 | Outpatient (CLI) | payer MEDICARE, SELFPAY ==
[2025-06-15 08:13] LABS: Hemoglobin A1C 5.0 % (<5.7)
[2025-06-15 08:16] LABS: ALT 27 U/L (10-49); AST 28 U/L (<34); Albumin 4.3 g/dL (3.2-5.0); Alkaline Phosphatase 95 U/L (46-116); Anion Gap 8.9 mmol/L (3-11); BUN 10 mg/dL (9-23); Bilirubin, Total 0.4 mg/dL (0.2-1.2); CO2 30.1 mmol/L (20.0-31.0); Calcium 9.3 mg/dL (8.3-10.6); Chloride 106 mmol/L (98-107); Cholesterol 226 mg/dL (<200); Glucose 93 mg/dL (74-106); HDL Cholesterol 85 mg/dL (>40); Potassium 4.1 mmol/L (3.5-5.1); Sodium 145 mmol/L (136-145); Total Protein 7.3 g/dL (5.7-8.2)
[2025-06-15 08:17] LABS: TSH (W/Ref FT4) 2.90 uIU/mL (0.55-4.78)
== END 2025-06-15 00:39 | disposition home or self-care (01) ==
LOC: LBO 00:38
PROVIDERS: Absent Provider Nurse Practitioner Family; PCP Nurse Practitioner Family; Referring Provider Nurse Practitioner Family; Visit Provider Nurse Practitioner Family
DX: E78.5 Hyperlipidemia, unspecified (principal); R73.01 Impaired fasting glucose; F32.A Depression, unspecified
CPT/HCPCS: 36415; 80053; 80061; 83036; 84443